=== PATIENT | male | born 1965 | race Caucasian/White ===

== ENCOUNTER 2019-01-31 16:26 | Emergency (ER) | payer OTHER ==
[~2019-01-31] VITALS: Ht 162.6 cm; Wt 78.0 kg
[~2019-01-31 16:26] MED LIST: ACET-141 PO; HYDR28.334 TP; IBUP-1542 PO
[2019-01-31 17:12] VITALS: BP 117/77; PULSE 77; RESP 16; Ht 162.6 cm; Wt 78.0 kg
--- NOTE | 2019-01-31 20:56 | ERD ---
ER Documentation Chief Complaint Chief Complaint bee sting on right side, unsure if it ear or head x 1 day HPI 53-year-old male with no significant past history presents for possible bee st ing on the side of his head x1 day. States that he has 3 out of 10 pain over the right side of the head, described as a sharp. Pain is nonradiating. No worsening or alleviating factors noted. Denies fevers or chills. Denies chest pain or shortness of breath. Denies abdominal pain, nausea, vomiting. No other modifying factors noted, no treatment tried at home. ROS All systems reviewed and are negative except as per history of present illness. Medications Home Meds Active Scripts Ibuprofen* (Motrin*) 600 Mg Tab, 600 MG PO Q6H PRN for PAIN AND OR ELEVATED TEMP, #30 TAB Prov:ERIBERTO TRAN PA-C 02/14/19 Ibuprofen* (Motrin*) 600 Mg Tab, 600 MG PO Q6, #30 TAB Prov:ERIBERTO TRAN PA-C 02/14/19 Hydrocortisone (Hydrocortisone Cr) 28.35 Gm Cr, 28.35 GM TP BID PRN for ITCHING for 7 Days, #1 TUBE Prov:VAN BATISTA DO 01/31/19 Acetaminophen* (Acetaminophen*) 500 MG Extra Strength Tablet, 500 MG PO Q4H PRN for PAIN AND OR ELEVATED TEMP, #30 TAB Prov:VAN BATISTA DO 01/31/19 Allergies Allergies: Coded Allergies: No Known Allergy (Unverified , 02/14/19) PMhx/Soc Medical and Surgical Hx: pt denies Medical Hx, pt denies Surgical Hx Hx Alcohol Use: Yes (Occasional alcohol) Hx Substance Use: No Hx Tobacco Use: No FmHx Family History: No coronary disease Physical Exam Vitals Vital Signs Date Temp Pulse Resp B/P (MAP) Pulse Ox O2 O2 Flow FiO2 Time Delivery Rate 01/31/19 97.8 77 16 117/77 98 17:12 (90) Physical Exam Const: No acute distress Head: Atraumatic Eyes: Normal Conjunctiva ENT: Normal External Ears, Nose and Mouth. Neck: Full range of motion. No meningismus. Resp: Clear to auscultation bilaterally Cardio: Regular rate and rhythm, no murmurs Abd: Soft, non tender, non distended. Normal bowel sounds Skin: mildly erythematous small nodule 0.5cm over the right temporal scalp a prema, nonfluctuant Back: No midline or flank tenderness Ext: No cyanosis, or edema Neur: Awake and alert Psych: Normal Mood and Affect Procedures/MDM Medical Decision Making: Differential diagnosis includes but not limited to allergic reaction, dermatitis, cellulitis, viral syndrome, fungal infection, erythrasma Patient appeared well on physical exam. No acute distress, speaking in full sentences, there is no tongue swelling Physical examination consistent with mild allergic reaction Low suspicion for deep space infection, Zackary Pro syndrome, toxic epidermal necrolysis Prescription(s): Patient given prescription for supportive medication(s). Patient advised to follow up with PCP in 1-2 days. Patient advised to return to ED for new or worsening symptoms. Patient stable on discharge from the ED. Disclaimer: Inadvertent spelling and grammatical errors are likely due to EHR/dictation software use and do not reflect on the overall quality of patient care. Also, please note that the electronic time recorded on this note does not necessarily reflect the actual time of the patient encounter. Departure Diagnosis: Primary Impression: Bug bite Encounter type: initial encounter Qualified Codes: W57.XXXA - Bitten or stung by nonvenomous insect and other nonvenomous arthropods, initial encounter Condition: Fair Patient Instructions: Insect Bites and Stings Additional Instructions: Call your primary care doctor TOMORROW for an appointment during the next 1-2 days.See the doctor sooner or return here if your condition worsens before your appointment time. VAN BATISTA DO Jan 31, 2019 20:56
== END 2019-01-31 17:37 | disposition home or self-care (01) ==
LOC: E/R 16:26
DX: S00.96XA Insect bite (nonvenomous) of unspecified part of head, initial encounter (principal); W57.XXXA Bitten or stung by nonvenomous insect and other nonvenomous arthropods, initial encounter; Y92.9 Unspecified place or not applicable
CPT/HCPCS: 99282

== ENCOUNTER 2019-02-14 17:18 | Emergency (ER) | payer OTHER ==
[~2019-02-14] VITALS: Ht 165.1 cm; Wt 77.4 kg
[2019-02-14 17:22] VITALS: BP 125/78; PULSE 87; RESP 16; Ht 165.1 cm; Wt 77.4 kg
[2019-02-14] MEDS ORDERED: METOCLOPRAMIDE 10 MG INJ IV ONE (18:00)
[2019-02-14] MEDS ORDERED: SOD CHLORIDE 0.9% 1,000 ML IV ONE (18:00)
--- NOTE | 2019-02-14 18:16 | ERD ---
ER Documentation Chief Complaint Chief Complaint CP since 1230, better after drinking Sheila. no n/v/SOB HPI 53-year-old male with no reported past medical or surgical history who presents with complaint of single episode of chest pain. Episode happened around 1230 this afternoon and patient describes it as substernal sternal type chest pain with no radiation, no associated nausea, vomiting, shortness of breath or dyspnea on exertion. Patient interesting enough status his symptoms spontaneously resolved after drinking Sheila water. He otherwise reports relatively good health prior to episode, no history of AL or any cardiac disease. He denies any pulmonary disease or history of smoking. At time of evaluation patient reporting complete resolution of symptoms. ROS All systems reviewed and are negative except as per history of present illness. Medications Home Meds Active Scripts Hydrocortisone (Hydrocortisone Cr) 28.35 Gm Cr, 28.35 GM TP BID PRN for ITCHING for 7 Days, #1 TUBE Prov:VAN BATISTA 01/31/19 Acetaminophen* (Acetaminophen*) 500 MG Extra Strength Tablet, 500 MG PO Q4H PRN for PAIN AND OR ELEVATED TEMP, #30 TAB Prov:VAN BATISTA 01/31/19 Allergies Allergies: Coded Allergies: No Known Allergy (Unverified , 02/14/19) FmHx Family History: No diabetes, No coronary disease, No other Physical Exam Vitals Vital Signs Date Temp Pulse Resp B/P (MAP) Pulse Ox O2 O2 Flow FiO2 Time Delivery Rate 02/14/19 98.1 87 16 125/78 97 17:22 (94) Physical Exam Const: No acute distress Head: Atraumatic Eyes: Normal Conjunctiva ENT: Normal External Ears, Nose and Mouth. Neck: Full range of motion. No meningismus. Resp: Clear to auscultation bilaterally Cardio: Regular rate and rhythm, no murmurs Abd: Soft, non tender, non distended. Normal bowel sounds Skin: No petechiae or rashes Back: No midline or flank tenderness Ext: No cyanosis, or edema Neur: Awake and alert Psych: Normal Mood and Affect Result Diagram: 02/14/19180302/14/191803 Results 24 hrs Laboratory Tests Test 02/14/19 18:04 White Blood Count 6.7 10^3/ul Red Blood Count 5.14 10^6/ul Hemoglobin 14.5 g/dl Hematocrit 45.3 % Mean Corpuscular Volume 88.1 fl Mean Corpuscular Hemoglobin 28.2 pg Mean Corpuscular Hemoglobin Concent 32.0 g/dl Red Cell Distribution Width 13.2 % Platelet Count 173 10^3/UL Mean Platelet Volume 11.5 fl Immature Granulocytes % 0.400 % Neutrophils % 58.4 % Lymphocytes % 30.3 % Monocytes % 8.6 % Eosinophils % 1.9 % Basophils % 0.4 % Nucleated Red Blood Cells % 0.0 /100WBC Immature Granulocytes # 0.030 10^3/ul Neutrophils # 3.9 10^3/ul Lymphocytes # 2.0 10^3/ul Monocytes # 0.6 10^3/ul Eosinophils # 0.1 10^3/ul Basophils # 0.0 10^3/ul Nucleated Red Blood Cells # 0.0 10^3/ul Sodium Level 141 mmol/L Potassium Level 3.8 mmol/L Chloride Level 104 mmol/L Carbon Dioxide Level 31 mmol/L Anion Gap 6 Blood Urea Nitrogen 19 mg/dl Creatinine 0.92 mg/dl Est Glomerular Filtrat Rate mL/min > 60 mL/min Glucose Level 90 mg/dl Calcium Level 9.5 mg/dl Troponin I < 0.012 ng/ml Current Medications Medications Dose Sig/Waqas Start Time Status Last (Trade) Ordered Route PRN Stop Time Admin Dose Reason Admin 5 mg ONCE ONCE 02/14/19 DC Metoclopramid IV 18:00 e HCl 02/14/19 18:06 (Reglan) Sodium 1,000 ml @ Q1H ONCE 02/14/19 DC Chloride 1,000 mls/hr IV 18:00 02/14/19 18:06 Procedures/MDM 53-year-old male with no cardiac history presents with complaint of chest pain. Patient otherwise healthy, p/w atypical chest pain ML of nonemergent etiology. I doubt ACS or any cardiopulmonary process warranting further emergent care work-up. No overt risk factors for ACS EKG reviewed by myself and attending physician, no overt evidence of contiguous ST segment elevations, low suspicion for acute AL. No overt tachy- or bradydysrhythmias. Low suspicion for WPW, long QT, HOCM, Brugada after EKG review. Low Wells score with low risk for PE and no significant hypoxia. Given characteristics, low s/f dissection. Exam and history not consistent with significant PTX or PNA. Troponin X1 negative Pain controlled, well appearing. Cautious return precautions discussed with full understanding. Prompt follow up with primary care physician discussed. DISPOSITION PLAN: We discussed follow up with the patient's primary care doctor within 24 to 48 hours. Patient counseled regarding my diagnostic impression and care plan. Prior to discharge all questions answered. Pt agrees with treatment plan and understands strict return precautions. Precautionary instructions provided including instructions to return to the ER if not improving or for any worsening or changing symptoms or concerns. Disclaimer: Inadvertent spelling and grammatical errors are likely due to EHR/dictation software use and do not reflect on the overall quality of patient care. Also, please note that the electronic time recorded on this note does not necessarily reflect the actual time of the patient encounter. Departure Condition: Stable ERIBERTO TRAN PA-C Feb 14, 2019 18:16
== END 2019-02-14 19:31 | disposition home or self-care (01) ==
LOC: FTE 17:18
DX: R07.9 Chest pain, unspecified (principal)
CPT/HCPCS: 36415; 80048; 84484; 85025; 99284; J7030; 93005